=== PATIENT | male | born 1960 | race Caucasian/White ===

== ENCOUNTER 2021-01-11 15:00 | Outpatient (REF) | payer OTHER, SELFPAY ==
[2021-01-11 16:22] LABS: MANUAL DIFF FLAG NO
[2021-01-11 16:27] LABS: Basophils Percent Auto 0.4 % (0-2); Eosinophils Absolute Auto 0.2 X10*3/uL (0.0-0.4); Eosinophils Percent Auto 3.4 % (0-4); Hematocrit 36.7 % (42-52); Hemoglobin 12.2 g/dl (14.0-18.0); Imm Gran Abs Auto 0.01 X10*3/uL (0.00-0.03); Imm Gran Pct Auto 0.2 % (0.0-0.4); Lymphocytes Percent Auto 20.6 % (20-40); Mean Corpuscular HGB Conc 33.2 g/dl (31.0-36.0); Mean Corpuscular Hemoglobin 29.6 pg (27.0-33.0); Mean Corpuscular Volume 89.1 fL (80-98); Mean Platelet Volume 10.4 fL (9.4-12.4); Monocytes Absolute Auto 0.6 X10*3/uL (0.1-1.2); Monocytes Percent Auto 12.9 % (2-11); Neutrophils Absolute Auto 3.1 X10*3/uL (2.0-8.3); Neutrophils Percent Auto 62.5 % (45-73); Platelet Count 173 X10*3/uL (160-400); Red Blood Count 4.12 X10*6/uL (4.60-5.80); Red Cell Distribution Width 12.7 % (11.0-16.0)
[2021-01-11 18:03] LABS: Erythrocyte Sedimentation Rate 6 MM/HR (0-15)
[2021-01-12 12:07] LABS: Immunoglobulin E 200 kU/L (<OR=114)
== END 2021-01-11 15:01 | disposition home or self-care (01) ==
LOC: HO.LAB 15:00
PROVIDERS: PCP Internal Medicine; Visit Provider Hospitalist
DX: R91.8 Other nonspecific abnormal finding of lung field (principal); J45.40 Moderate persistent asthma, uncomplicated; G47.33 Obstructive sleep apnea (adult) (pediatric); Z99.89 Dependence on other enabling machines and devices
CPT/HCPCS: 36415; 82785; 85025; 85652

== ENCOUNTER 2021-01-14 13:03 | Outpatient (REF) | payer OTHER, SELFPAY ==
--- NOTE | 2021-01-14 14:46 | PFT_ITS ---
Forced vital capacity, FEV1, ZNS06-26, and MVV are all normal. Post bronchodilator therapy, there is no significant change. Total lung capacity normal. Residual volume slightly increased. Diffusion capacity slightly decreased. CONCLUSION: Normal pulmonary function test. Slight decrease in diffusion capacity may be due to technical reason. Clinical correlation recommended. MD PATRICIA Gu/EVELYN / [id number]
== END 2021-01-14 13:04 | disposition home or self-care (01) ==
LOC: HO.RESP 13:03
PROVIDERS: PCP Internal Medicine; Visit Provider Hospitalist
DX: R91.8 Other nonspecific abnormal finding of lung field (principal); R06.00 Dyspnea, unspecified
CPT/HCPCS: 94060; 94727; 94729

== ENCOUNTER → 2021-02-12 15:35 | Outpatient (BNVA) | payer OTHER, SELFPAY | PROVIDERS: PCP Internal Medicine; Visit Provider Hospitalist | DX: J44.9 Chronic obstructive pulmonary disease, unspecified (principal); J31.0 Chronic rhinitis; J45.909 Unspecified asthma, uncomplicated; R91.8 Other nonspecific abnormal finding of lung field ==

== ENCOUNTER → 2021-08-13 15:58 | Outpatient (BNVA) | payer OTHER, SELFPAY | PROVIDERS: PCP Internal Medicine; Visit Provider Hospitalist | DX: J44.9 Chronic obstructive pulmonary disease, unspecified (principal); J31.0 Chronic rhinitis; J45.909 Unspecified asthma, uncomplicated; R91.8 Other nonspecific abnormal finding of lung field ==

== ENCOUNTER 2022-02-11 | Outpatient (REF) | payer OTHER, SELFPAY ==
--- NOTE | ~2022-02-11 | CT_ITS ---
EXAMINATION: CT CHEST WITHOUT CONTRAST CLINICAL INFORMATION: Nodules COMPARISON: CT chest from 02/02/2021 TECHNIQUE: Multidetector volumetric CT imaging of the chest was done. Axial MIP volume rendering provided. Sagittal and coronal reformatted images were obtained. This CT examination was performed using dose optimization techniques as appropriate, variously including the following: *Automated exposure control *Adjustment of mA and/or kV according to patient size (this includes techniques or standardized protocols for targeted exams where dose is matched to indication/reason for exam; i.e. extremities or head) *Use of iterative reconstruction technique DLP: 196 mGy-cm FINDINGS: LUNGS/PLEURA: Biapical pleural parenchymal scarring. Mild emphysematous changes. Redemonstration of multiple bilateral pulmonary nodules. For example calcified granuloma in the right upper lobe (series 7, image 154). Stable 2 mm pleural-based nodule in the anterior aspect of the right upper lobe 2)Additional calcified granuloma just inferior to this (series 7, image 1). 2 mm nodule in the right upper lobe (series 7, image 223), stable. Stable 2 mm nodule along the right minor fissure (series 7, image 259). Stable nodular density with pleural tethering in the medial aspect of the anterior right middle lobe (series 7, image 281) measuring 4 mm. Stable 2 mm nodule in the right middle lobe (series 7, image 377). Stable 4 mm nodule in the lateral aspect of the right lower 5). Stable 2 mm subpleural nodule in the medial aspect of the left lower lobe (series 7, image 223). No new large suspicious pulmonary nodules or masses are noted. Central airways are patent. No pneumothorax. No large pleural effusion. MEDIASTINUM: Heart is not enlarged. No pericardial effusion. Coronary artery calcifications are noted. Aorta is nonaneurysmal. Main pulmonary artery is not enlarged. No enlarged lymph nodes per size criteria. Visualized portions of the thyroid are unremarkable AXILLA: No lymphadenopathy. UPPER ABDOMEN: Unremarkable. OSSEOUS STRUCTURES: Degenerative changes of the thoracolumbar spine. No large lytic or blastic lesions are noted. CT/CT chest wo con IMPRESSION: 1. Redemonstration of multiple bilateral pulmonary nodules the largest measuring up to 4 mm. 2. No new large suspicious pulmonary nodules or masses are noted.
== END 2022-02-11 00:01 | disposition home or self-care (01) ==
LOC: HO.CT
PROVIDERS: PCP Internal Medicine; Visit Provider Hospitalist
DX: R91.8 Other nonspecific abnormal finding of lung field (principal)
CPT/HCPCS: 71250

== ENCOUNTER 2022-05-13 07:59 | Outpatient (REF) | payer OTHER, SELFPAY ==
--- NOTE | ~2022-05-13 | US_ITS ---
EXAMINATION: US RETROPERITONEAL LIMITED (RENAL ONLY) CLINICAL INFORMATION: Calculus of kidney. COMPARISON: None TECHNIQUE: Real-time imaging of the kidneys. FINDINGS: RIGHT KIDNEY: 11.0 x 6.6 x 6.4 cm (SAG x AP x TRV). The kidney is normal in size, contour, and echogenicity. Renal cortical thickness is normal. No focal parenchymal lesions. There is a 1.5 cm hyperechoic elongated observation projecting over the renal hilum with associated twinkle artifact but no posterior shadowing. There is mild fullness of the renal pelvis. LEFT KIDNEY: 11.5 x 6.8 x 5.8 cm (SAG x AP x TRV). The kidney is normal in size, contour, and echogenicity. Renal cortical thickness is normal. No hydronephrosis. There is a 3.3 cm simple cyst in the mid to upper pole, for which no imaging follow-up is routinely recommended. There is a 0.6 cm calculus in the interpolar region and a 0.5 cm calculus in the lower pole. US/US renal BI IMPRESSION: 1. There is a 1.5 cm hyperechoic observation projecting over the right renal hilum with mild fullness of the right renal pelvis. This could represent a calculus with mild hydronephrosis. If clinically deemed appropriate, correlation with a CT abdomen/pelvis could be obtained. 2. There are 2 nonobstructive left-sided renal calculi, the largest measuring 0.6 cm. 3. Simple cyst in the left kidney for which no imaging follow-up is routinely recommended.
== END 2022-05-13 08:00 | disposition home or self-care (01) ==
LOC: HO.US 07:59
PROVIDERS: Visit Provider Urology
DX: N20.0 Calculus of kidney (principal)
CPT/HCPCS: 76775

== ENCOUNTER 2022-07-22 16:31 | Outpatient (REF) | payer OTHER, SELFPAY ==
--- NOTE | ~2022-07-22 | CT_ITS ---
EXAMINATION: CT ABDOMEN AND PELVIS WITHOUT CONTRAST CLINICAL INFORMATION: Calculus of kidney. COMPARISON: Ultrasound 05/13/2022 TECHNIQUE: Multidetector volumetric imaging was performed from the lung bases through the pubic symphysis. Sagittal and coronal reformatted images were obtained on the technologist workstation. This CT examination was performed using dose optimization techniques as appropriate, variously including the following: *Automated exposure control *Adjustment of mA and/or kV according to patient size (this includes techniques or standardized protocols for targeted exams where dose is matched to indication/reason for exam; i.e. extremities or head) *Use of iterative reconstruction technique FINDINGS: The lack of intravenous contrast limits evaluation of the solid visceral organs including the liver, spleen, pancreas, and kidneys. LUNG BASES: The visualized lung bases are unremarkable. LIVER, GALLBLADDER, AND BILIARY TREE: Limited non-contrast evaluation is normal. No gross focal hepatic lesion. Normal liver size and contour. No gross biliary ductal dilation. The gallbladder is unremarkable with no evidence of radiopaque gallstones, gallbladder wall thickening, or obvious pericholecystic inflammatory changes. PANCREAS: Limited non-contrast evaluation is normal. No david-pancreatic fluid. SPLEEN: Limited non-contrast evaluation is normal. ADRENAL GLANDS: Normal; no adrenal mass. KIDNEYS AND URETERS: 9 mm right lower pole calculus. 1 cm nonobstructing left mid renal calculus. 4 mm left lower pole nonobstructing calculus. 3.6 cm left upper pole simple renal cyst; no imaging follow-up recommended. No hydronephrosis bilaterally. GASTROINTESTINAL TRACT: Stomach and small bowel are nondilated. Appendix not seen but there are no right lower quadrant inflammatory changes. Scattered colonic diverticulosis. No evidence of colitis or diverticulitis. ABDOMINAL WALL: No hernia seen. LYMPH NODES: No pathologically enlarged lymph nodes in the abdomen or pelvis. VASCULAR: Normal caliber abdominal aorta. BLADDER: Unremarkable. PELVIC VISCERA: Prostatomegaly. OSSEOUS STRUCTURES: Degenerative changes of the hips and lumbar spine. CT/CT kidney stone IMPRESSION: Bilateral renal calculi up to 9 mm on the right, 10 mm on the left. No hydronephrosis.
== END 2022-07-22 16:32 | disposition home or self-care (01) ==
LOC: HO.CT 16:31
PROVIDERS: Visit Provider Urology
DX: N20.0 Calculus of kidney (principal)
CPT/HCPCS: 74176

== ENCOUNTER → 2022-08-03 13:57 | Outpatient (BNVA) | payer OTHER, SELFPAY | PROVIDERS: PCP Internal Medicine; Visit Provider Urology | DX: Z13.89 Encounter for screening for other disorder (principal) ==

== ENCOUNTER 2022-09-02 14:57 | Outpatient (REF) | payer OTHER, SELFPAY ==
--- NOTE | 2022-09-02 17:46 | PFT_ITS ---
INDICATION: Asthma. SPIROMETRY: FEV1 to FVC of 81% with an FEV1 of 4 L, which is 103% predicted and an FVC of 4.96 L, which is 97% predicted. No significant response to bronchodilator is noted. Maximum voluntary ventilation is 96% of predicted. LUNG VOLUMES: Total lung capacity 95% predicted. DIFFUSION CAPACITY: DLCO 72% predicted. COMPARISONS: PFTs from 2020. INTERPRETATION: No obstructive nor restrictive ventilatory defects identified. No significant response to bronchodilators noted. Normal maximum voluntary ventilation. Lung volumes are within normal limits. The patient does have a mild diffusion impairment. When compared to 2020, there is a trend decrease in the FVC, significant decrease in the FEV1, significant decrease in the total lung capacity, and a trend improvement in the diffusion capacity. Clinical correlation warranted. Kirk Hernandez MD MR/MODL / [id number]
== END 2022-09-02 14:58 | disposition home or self-care (01) ==
LOC: HO.RESP 14:57
PROVIDERS: PCP Internal Medicine; Visit Provider Hospitalist
DX: J45.40 Moderate persistent asthma, uncomplicated (principal)
CPT/HCPCS: 94060; 94727; 94729

== ENCOUNTER → 2022-09-16 15:32 | Outpatient (BNVA) | payer OTHER, SELFPAY | PROVIDERS: PCP Internal Medicine; Visit Provider Hospitalist | DX: Z13.89 Encounter for screening for other disorder (principal) ==

== ENCOUNTER 2022-09-30 11:53 | Outpatient (REF) | payer OTHER, SELFPAY ==
[2022-09-30 14:03] LABS: Cholesterol 125 mg/dL; HDL Cholesterol 65 mg/dL; LDL Cholesterol Calculated 53 mg/dl; Triglycerides 38 mg/dL
== END 2022-09-30 11:54 | disposition home or self-care (01) ==
LOC: HO.LAB 11:53
PROVIDERS: PCP Internal Medicine; Visit Provider Nurse Practitioner
DX: Z82.49 Family history of ischemic heart disease and other diseases of the circulatory system (principal)
CPT/HCPCS: 36415; 80061

== ENCOUNTER → 2022-12-16 14:57 | Outpatient (BNVA) | payer OTHER, SELFPAY | PROVIDERS: PCP Internal Medicine; Visit Provider Hospitalist ==

== ENCOUNTER 2023-04-26 13:51 | Outpatient (AMB) | payer OTHER, SELFPAY ==
--- NOTE | 2023-04-26 14:13 | MHC.OFFVIS ---
Intake Intake Visit Reasons: 6m follow up Intake Note: Patient is Present for 6mo Follow Up Urology Medication:none Antibiotic Allergies: allergy shots (?) Blood Thinners: none Pharmacy:[facility] Allergies beef, chicken, wheat, almonds, Allergy (Severe, Uncoded 04/26/23 14:16) Rash/Hives HPI HPI Comments History of Present Illness Details Rick REYES is a very pleasant male. He is a patient of Dr Milligan. They are seen in the office today for the following urologic conditions. - lower urinary tract symptoms Would like to push off ESWL 6 months - has shoulder issues currently Secondary issue is dermatitis on glans of penis - trial combination clobetasol cream Discussed findings with 2 stones Repeat imaging in 6 months KUB Nephrolithiasis/Urolithiasis:? They are here for?further evaluation of nephrolithiasis.? Urolithiasis was diagnosed?2006 had ureteroscopy.? The patient previously had kidney stones whose composition w?unknown.? Laboratory investigations include?no recent labs.? 24 Hour urine evaluation?none on file.? Prior treatment(s) include?observation, with dietary advice to increase fluids, decrease salt and watch protein intake.? Prior imaging includes?03/03 , a renal ultrasound, right 9mm, L 13mm.? - 07/07 CT 9 mm right lower pole calculus - 1 cm left mid pole, 4 mm left lower pole ? Therapeutic plan ?- surveillance [facility] Medical History Asthma Chronic allergic rhinitis EMANUEL on CPAP Pulmonary nodules Family History Other Seasonal allergies Social History Patient Tobacco Use Status: Never used Tobacco Review of Systems Const Denies chills and Denies fever(s) Card Reports no additional complaints and Denies syncope Resp Denies cough GI Denies abdominal pain and Denies heartburn Reports as per HPI and Denies change in libido Neuro Denies syncope Psych Denies change in libido Endo Denies change in libido Physical Exam Const General: cooperative, healthy appearing, comfortable and no acute distress Orientation/consciousness: patient oriented x3 HEENT Face and sinus: Yes normal facial exam Mouth: moist mucous membranes Neck Neck: Yes normal visual inspection, Yes full ROM and Yes trachea midline Chest Chest palpation & inspection: normal inspection of the chest Resp Effort & Inspection: normal respiratory effort, able to speak in complete sentences and no respiratory distress GI Inspection: Yes normal to inspection Back/Spine/Pelvis Cervical Spine: normal cervical lordosis Thoracic/Lumbar Spine: thoracic and lumbar spine normal to inspection Skin General skin exam: no rashes or lesions noted Neuro General: patient oriented x3, gait normal, tone normal and moves all extremities Extrem General: Yes normal to inspection and Yes capillary refill normal Assessment & Plan Assessment & Plan (1) Dermatitis: Code(s): L30.9 - Dermatitis, unspecified (2) Bilateral nephrolithiasis: Code(s): N20.0 - Calculus of kidney Plan Six month follow-up Orders: Orders XR KUB 6 Months N20.0 - Calculus of kidney Medications: New clotrimazole-betamethasone 1-0.05 % Apply thin coat 2 times per day 1 appl topical BID 4 weeks 45 grams 0RF L30.9 - Dermatitis, unspecified, N48.1 - Balanitis Patient Instructions: Imaging studies, laboratory and physical exam results were discussed and reviewed in detail. No major barriers to patient understanding were identified. An opportunity to ask questions regarding the treatment plan was provided. All questions were answered. The patient expressed understanding and agreement with the above treatment plan. The patient is aware they should contact our office by phone for worsening of their current condition or the appearance of new urologic symptoms. Compliance is encouraged with any medications and followup testing that is ordered. It is a privilege to participate in the urologic care of your patient. If you have any questions or concerns regarding treatment for the above conditions, or other urologic issues, please do not hesitate to contact me. The office telephone contact is [phone]. This note is constructed using voice recognition software. While every effort has been made to ensure accuracy pumper gauger errors may have been included. Yours sincerely, Dr Homero Wang MD, SHA[facility] - Urology Providers of Expert, Compassionate Care for the Genitourinary System Coding Level of Care Code Est Pt Level 4 (65057) Diagnoses Dermatitis L30.9 Bilateral nephrolithiasis N20.0
== END 2023-04-26 14:57 | disposition home or self-care (01) ==
PROVIDERS: PCP Internal Medicine; Visit Provider Urology
DX: L30.9 Dermatitis, unspecified (principal); N20.0 Calculus of kidney
CPT/HCPCS: 99214

== ENCOUNTER → 2023-04-26 13:51 | Outpatient (BNVA) | payer OTHER, SELFPAY | PROVIDERS: Visit Provider Urology ==

== ENCOUNTER 2023-05-04 15:24 | Outpatient (REF) | payer OTHER, SELFPAY ==
--- NOTE | ~2023-05-04 | CT_ITS ---
EXAMINATION: CT CHEST WITHOUT CONTRAST CLINICAL INFORMATION: Pulmonary nodule follow-up. COMPARISON: CTA chest 02/10/2021, 02/11/2022. TECHNIQUE: Multidetector volumetric CT imaging of the chest was done. Axial MIP volume rendering provided. Sagittal and coronal reformatted images were obtained. This CT examination was performed using dose optimization techniques as appropriate, variously including the following: *Automated exposure control *Adjustment of mA and/or kV according to patient size (this includes techniques or standardized protocols for targeted exams where dose is matched to indication/reason for exam; i.e. extremities or head) *Use of iterative reconstruction technique DLP: 188 mGy-cm FINDINGS: LUNGS: Mild centrilobular emphysema. Calcified and noncalcified nodules measuring up to 4 mm seen bilaterally. There is been no significant change when compared to index study of 02/10/2021. No morphologically suspicious nodules. MEDIASTINUM: No adenopathy. No pericardial effusion. CORONARY ARTERY CALCIFICATION: Mild coronary calcium. PLEURA: There is no pleural effusion. No pleural mass or thickening. AXILLA: No lymphadenopathy. UPPER ABDOMEN: Simple cyst in the left upper kidney. OSSEOUS STRUCTURES: Degenerative changes in the spine. CT/CT chest wo IV con IMPRESSION: Stable pulmonary nodules dating back to 02/10/2021. No follow-up imaging is recommended as per Fleischner Society guidelines. Fleischner guidelines were followed.
== END 2023-05-04 15:25 | disposition home or self-care (01) ==
LOC: HO.CT 15:24
PROVIDERS: PCP Internal Medicine; Visit Provider Hospitalist
DX: R91.8 Other nonspecific abnormal finding of lung field (principal)
CPT/HCPCS: 71250

== ENCOUNTER 2023-05-11 15:50 | Outpatient (AMB) | payer OTHER, SELFPAY ==
[2023-05-11 15:52] VITALS: BP 108/64; PULSE 64; O2SAT 98; BMI 24.5
--- NOTE | 2023-05-11 15:52 | MHC.OFFVIS ---
Intake Vital Signs 05/11/23 15:52 Height 6 ft Weight 180 lb 12.465 oz BMI 24.5 BP 108/64 Blood Pressure Location Rt brachial Position Sitting Pulse 64 Pulse Source Pulse Oximeter Pulse Oximetry (%) 98 Oxygen Delivery Method Room Air Intake Visit Reasons: COPD General Office Clerk Required: No Sea Foam Kiss Maker: Sea Foam Kiss Maker offered & declined Accompanied by: Self / Same As Patient Allergies beef, chicken, wheat, almonds, Allergy (Severe, Uncoded 05/11/23 15:58) Rash/Hives Medication List - Last Reconciled 05/11/23 by Pau Mendiola LPN atorvastatin 20 mg PO DAILY citalopram 30 mg PO DAILY clotrimazole-betamethasone 1-0.05 % 1 appl topical BID 4 weeks CPAP (CPAP Machine/Device) As directed omega 2-mjf-sxv-fish oil 60-90-500 mg (Fish Oil) 1 cap PO DAILY HPI HPI Comments History of Present Illness Details the patient is a 62-year-old gentleman with a known history of allergic rhinitis, allergic asthma and obstructive sleep apnea. The patient had a couple sleep studies demonstrating sleep apnea and he was very symptomatic her he was started on CPAP therapy with [facility] home infusions and respiratory DME company. Subsequently the company was bought out by [employer] and he was placed under [employer]. In the meantime the patient has been very faithful with his CPAP therapy. The therapy has been affecting beneficial for many years. He does use it for more than 4 hours a night. However, he has not been getting supplies regularly through his DME company. Therefore, I will submit a prescription to [employer] for CPAP supplies at this time. He did bring his CPAP to the office. We were able to download data. His AHI is 1.7 although 1.2 events an hour are due to central apneas. Only 0.5 events an hour are obstructive in nature. He has been complaining of swallowing a lot air. He feels the pressure is a little too high for him. Specially since he lost weight. I was able to changes pressures from 6-12 to 5-10. in addition to that he has a complaining about his significant allergies. He was evaluated by an manager psychiatry and he did try allergy shots but did not feel any significant improvement. He does complaint of significant nasal congestion and coughing and burning of eyes and runny nose. the patient is open to trying singular at this time. He does feel some congestion is concerned about sinusitis. we did review his last CT scan of the chest done at [facility] back in 2018 demonstrating multiple pulmonary nodules for patient continues to be symptomatic with cough shortness of from needs to concern of the pulmonary nodules this time. He also has had some weight loss. Therefore, will have him have a repeat CT scan of the chest this time. 09/16/2022 the patient is here for a pulmonary follow-up visit. He is complaining significant issues with his nasal passages. Complaining significant nasal congestion and irritation. Also feeling some sinus pressure. Hhrn-ev-tndylomc severity. He also uses CPAP which also can potentially worsen her. The patient has tried [id number]-[id number] nasal sprays and also prescription nasal sprays without any significant improvement. His nose appears to be significantly congested and erythematous. We did send him medications to the pharmacy for him to try including Sudafed and also he can draft roller picker some Afrin. I do believe that some doxycycline may be helpful for the possibility of sinusitis. In addition to this he is using the CPAP. The CPAP therapy has been affecting beneficial. Although his AHI is still about 3.4. It appears that most of the apneic episodes such antral sleep apnea is better not going to get better. Although I will try to increase his pressure slightly from 10-11 cm the maximum pressure to see if we can provide him some more relief. I did a repeat sure him that the central sleep apneas are not severe and that should not be treated at this time as they are normal. In addition to this is going to try some humidity with the CPAP to see if this can also get him some relief with sinusitis issue from an asthma standpoint the patient is doing well. He did have his pulmonary function studies demonstrating normal spirometry and lung volumes. His diffusing capacity continues to be on the low side although is better than before. He does run low and his hemoglobin. He will follow up with his primary care doctor regarding the anemia. His last hemoglobin on record here from 2020 was 12.1 just slightly now. 12/16/2022 the patient is here for a pulmonary follow-up visit. Still complaining of nasal congestion and sinus pressure. However, he has not followed up with any of the medications recommended. Explained to him the use of Sudafed and also Afrin will help open up the sinuses in order for better drainage. He did take the doxycycline although was not very helpful. I will prescribe from Augmentin to see if this more effective. He has seen ENT in the past. The patient also may benefit from getting a CT scan of sinus if he has no better. I did recommend he go back to ENT. In the meantime the patient should also perform nasal rinsing prior to putting on CPAP as this can also worsening his sinus pressure and obstruction. He does use CPAP every night. CPAP therapy has been affecting beneficial. He still struggles with the use of the CPAP however. He does use it for more than 4 hours a night. 05/11/2023 the patient is here for pulmonary follow-up visit. he has been having issues with significant daytime drowsiness. His [place] score is elevated 06/09. He has been using the CPAP every night. He has been averaging between 9-1/2-10 hours sleep. Still waking up tired. We did download his CPAP machine. His AHI is now 5. This is higher than before. As far as the breakdown up to 4 events an hour are due to central apneas. Therefore, explained to the patient that the machine is adequately treating the obstructive component but it may be that is making his central apneas worse. Therefore will go ahead and decrease the pressure by 1 cm. He is going to monitor closely symptoms. If however the AHI continues to be elevated and he continues to be symptomatic, then an in-lab titration study will be warranted. In the meantime he continues to have nasal congestion. We did talk about the Neti bottle. I did recommend he use it as long as use distilled water. He is concerned about the potential side effects therefore she will consider it. The patient also is using allergy medications. His respiratory status overall has been better. No wheezing today on examination. In addition to that we did review his CT scan of the chest. His pulmonary nodules have been stable for more than 2 years which is reassuring and likely benign. Therefore no additional serial CT scans are warranted. There other incidental findings such as a renal cyst. All these findings have been reported to be Unchanged. His biggest concern is his significant daytime drowsiness. Therefore to depending on his response to the changes performance CPAP we can always consider referral to a sleep center so we can further evaluate the possibility of a complex sleep apnea. REPLACED BY [facility] Medical History Asthma Chronic allergic rhinitis EMANUEL on CPAP Pulmonary nodules Family History Other Seasonal allergies Social History (Updated 05/11/23 @ 16:00 by Pau Mendiola LPN) Patient Tobacco Use Status: Never used Tobacco Smoked in Last 30 Days: No Review of Systems Const Denies night sweats ENT Denies change in voice, Denies mouth pain, Reports nasal congestion, Reports nasal discharge, Reports nasal obstruction, Reports post nasal drip, Reports sinus pain, Reports sinus pressure and Denies tongue swelling Card Denies chest pain Resp Reports cough GI Denies abdominal pain Musc Denies no additional complaints Neuro Denies Neuro-related abnormal movements Psych Denies no additional complaints Russel/Lymph Denies easy bleeding and Denies lymphadenopathy Aller/Immun Denies tongue swelling Physical Exam Vital Signs: Last Vital Signs Pulse 64 05/11/23 15:52 BP 108/64 05/11/23 15:52 Pulse Ox 98 05/11/23 15:52 Oxygen Delivery Method Room Air 05/11/23 15:52 BMI result Body Mass Index 24.5 Const General: alert HEENT General nose exam: Abnormal mucous membranes and turbinates present and Nasal discharge present Neck Neck: Yes normal visual inspection, Yes full ROM and Yes no lymphadenopathy Chest Chest palpation & inspection: normal inspection of the chest Resp Effort & Inspection: normal respiratory effort Auscultation: clear to auscultation bilaterally, no rhonchi and no wheezes Cardio Rate: regular rate Rhythm: regular rhythm Heart sounds: S1 normal heart sound present and S2 normal heart sound present GI Palpation (GI): Soft to palpation and nontender Auscultation: normal bowel sounds Skin General skin exam: rashes and/or lesions noted Assessment & Plan Assessment & Plan (1) Chronic allergic rhinitis: Code(s): J30.9 - Allergic rhinitis, unspecified (2) EMANUEL on CPAP: Code(s): G47.33 - Obstructive sleep apnea (adult) (pediatric); Z99.89 - Dependence on other enabling machines and devices (3) Asthma: Code(s): J45.909 - Unspecified asthma, uncomplicated Qualifiers: Asthma severity: moderate Asthma persistence: persistent Asthma complication type: uncomplicated Qualified Code(s): J45.40 - Moderate persistent asthma, uncomplicated (4) Pulmonary nodules: Code(s): R91.8 - Other nonspecific abnormal finding of lung field Plan Dymista BID Nasal rinsing with Neti bottle continue allergy shots APAP therapy, using nasal pillows. Adjust APAP 5-11 to 5-10. Will call if no better to set up in lab titration study no additional serial CT chest F/U in 3 months Coding Level of Care Code Est Pt Level 5 (89203) Diagnoses Chronic allergic rhinitis J30.9 EMANUEL on CPAP G47.33; Z99.89 Moderate persistent asthma without complication J45.40 Asthma severity: moderate Asthma persistence: persistent Asthma complication type: uncomplicated Pulmonary nodules R91.8 Time Spent (min) 45
== END 2023-05-12 14:34 | disposition home or self-care (01) ==
PROVIDERS: PCP Internal Medicine; Visit Provider Hospitalist
DX: J45.40 Moderate persistent asthma, uncomplicated (principal); G47.33 Obstructive sleep apnea (adult) (pediatric); Z99.89 Dependence on other enabling machines and devices; R91.8 Other nonspecific abnormal finding of lung field
CPT/HCPCS: 99215

== ENCOUNTER → 2023-05-11 15:50 | Outpatient (BNVA) | payer OTHER, SELFPAY | PROVIDERS: PCP Internal Medicine; Visit Provider Hospitalist ==

== ENCOUNTER → 2023-08-30 19:30 | Outpatient (REF) | payer OTHER, SELFPAY | LOC: HO.SL 19:30 | PROVIDERS: PCP Internal Medicine; Visit Provider Hospitalist | DX: Z13.89 Encounter for screening for other disorder (principal) ==

== ENCOUNTER 2023-09-07 14:49 | Outpatient (AMB) | payer OTHER, SELFPAY ==
[2023-09-07 15:00] VITALS: PULSE 92; O2SAT 98; BMI 24.7
--- NOTE | 2023-09-07 15:00 | MHC.OFFVIS ---
Intake Vital Signs 09/07/23 15:00 Height 6 ft Weight 182 lb BMI 24.7 Pulse 92 Pulse Source Pulse Oximeter Pulse Oximetry (%) 98 Oxygen Delivery Method Room Air Intake Visit Reasons: COPD Vegetable Loader Required: No Allergies beef, chicken, wheat, almonds, Allergy (Severe, Uncoded 09/07/23 15:01) Rash/Hives HPI HPI Comments History of Present Illness Details the patient is a 63-year-old gentleman with a known history of allergic rhinitis, allergic asthma and obstructive sleep apnea. The patient had a couple sleep studies demonstrating sleep apnea and he was very symptomatic her he was started on CPAP therapy with [employer] [facility] and respiratory DME company. Subsequently the company was bought out by [employer] and he was placed under [employer]. In the meantime the patient has been very faithful with his CPAP therapy. The therapy has been affecting beneficial for many years. He does use it for more than 4 hours a night. However, he has not been getting supplies regularly through his DME company. Therefore, I will submit a prescription to [employer] for CPAP supplies at this time. He did bring his CPAP to the office. We were able to download data. His AHI is 1.7 although 1.2 events an hour are due to central apneas. Only 0.5 events an hour are obstructive in nature. He has been complaining of swallowing a lot air. He feels the pressure is a little too high for him. Specially since he lost weight. I was able to changes pressures from 6-12 to 5-10. in addition to that he has a complaining about his significant allergies. He was evaluated by an swimming professor and he did try allergy shots but did not feel any significant improvement. He does complaint of significant nasal congestion and coughing and burning of eyes and runny nose. the patient is open to trying singular at this time. He does feel some congestion is concerned about sinusitis. we did review his last CT scan of the chest done at [facility] back in 2018 demonstrating multiple pulmonary nodules for patient continues to be symptomatic with cough shortness of from needs to concern of the pulmonary nodules this time. He also has had some weight loss. Therefore, will have him have a repeat CT scan of the chest this time. 09/16/2022 the patient is here for a pulmonary follow-up visit. He is complaining significant issues with his nasal passages. Complaining significant nasal congestion and irritation. Also feeling some sinus pressure. Buie-yc-xeqpwaei severity. He also uses CPAP which also can potentially worsen her. The patient has tried gwzn-cev-axdboef nasal sprays and also prescription nasal sprays without any significant improvement. His nose appears to be significantly congested and erythematous. We did send him medications to the pharmacy for him to try including Sudafed and also he can corn picker some Afrin. I do believe that some doxycycline may be helpful for the possibility of sinusitis. In addition to this he is using the CPAP. The CPAP therapy has been affecting beneficial. Although his AHI is still about 3.4. It appears that most of the apneic episodes such antral sleep apnea is better not going to get better. Although I will try to increase his pressure slightly from 10-11 cm the maximum pressure to see if we can provide him some more relief. I did a repeat sure him that the central sleep apneas are not severe and that should not be treated at this time as they are normal. In addition to this is going to try some humidity with the CPAP to see if this can also get him some relief with sinusitis issue from an asthma standpoint the patient is doing well. He did have his pulmonary function studies demonstrating normal spirometry and lung volumes. His diffusing capacity continues to be on the low side although is better than before. He does run low and his hemoglobin. He will follow up with his primary care doctor regarding the anemia. His last hemoglobin on record here from 2020 was 12.1 just slightly now. 12/16/2022 the patient is here for a pulmonary follow-up visit. Still complaining of nasal congestion and sinus pressure. However, he has not followed up with any of the medications recommended. Explained to him the use of Sudafed and also Afrin will help open up the sinuses in order for better drainage. He did take the doxycycline although was not very helpful. I will prescribe from Augmentin to see if this more effective. He has seen ENT in the past. The patient also may benefit from getting a CT scan of sinus if he has no better. I did recommend he go back to ENT. In the meantime the patient should also perform nasal rinsing prior to putting on CPAP as this can also worsening his sinus pressure and obstruction. He does use CPAP every night. CPAP therapy has been affecting beneficial. He still struggles with the use of the CPAP however. He does use it for more than 4 hours a night. 05/11/2023 the patient is here for pulmonary follow-up visit. he has been having issues with significant daytime drowsiness. His [facility] [place] score is elevated 1124. He has been using the CPAP every night. He has been averaging between 9-1/2-10 hours sleep. Still waking up tired. We did download his CPAP machine. His AHI is now 5. This is higher than before. As far as the breakdown up to 4 events an hour are due to central apneas. Therefore, explained to the patient that the machine is adequately treating the obstructive component but it may be that is making his central apneas worse. Therefore will go ahead and decrease the pressure by 1 cm. He is going to monitor closely symptoms. If however the AHI continues to be elevated and he continues to be symptomatic, then an in-lab titration study will be warranted. In the meantime he continues to have nasal congestion. We did talk about the Neti bottle. I did recommend he use it as long as use distilled water. He is concerned about the potential side effects therefore she will consider it. The patient also is using allergy medications. His respiratory status overall has been better. No wheezing today on examination. In addition to that we did review his CT scan of the chest. His pulmonary nodules have been stable for more than 2 years which is reassuring and likely benign. Therefore no additional serial CT scans are warranted. There other incidental findings such as a renal cyst. All these findings have been reported to be Unchanged. His biggest concern is his significant daytime drowsiness. Therefore to depending on his response to the changes performance CPAP we can always consider referral to a sleep center so we can further evaluate the possibility of a complex sleep apnea. 09/07/2023 the patient is here for a pulmonary follow-up visit. He is having issues lately with his CPAP. His AHI continues to be elevated above 5. We had made some adjustments to his APAP decreasing the maximum pressure to try to minimize the central apneas. Still getting abnormal numbers. Continues have daytime drowsiness and memory issues. In addition to that the patient started having some hearing loss. He is being monitored by ENT. He is wondering if the CPAP constant positive pressure could result in some injury to his hearing. Explained to him barotrauma from the pressure has been described, but, his pressures are typically on the lower to intermediate side. I personally have not seen people develop hearing loss form CPAP. Therefore, we had the patient undergo an in-lab sleep study. It appears that his AHI was on 2.4 consistent with normal study. His pulse ox was okay. His end-tidal CO2 was also reassuring. We did review his previous sleep study that he had back in 2016 at [facility] was a home sleep study with an AHI of 8.8. Seems like this sleep study most recently is better although is only 1 night study and he may indeed have some variability. Is wondering about other alternative interventions. We did talk about a elastic mandibular device. This is something that he can get from a dentist. I did give him information about that. This is sometimes going to provide him some relief. In view of the hearing loss, the normal sleep study, the elevations in his central apneas while on CPAP it is reasonable to hold off on the CPAP right now the patient will use the mandibular advancing device. If he does want to use CPAP then we have to decrease the pressures further but at this point I encourage him not to use it in view of the normal sleep study. In the future we can always consider repeating the study. She did have a good experience at the she could be sleep Center. [facility] Medical History (Updated 09/11/23 @ 09:13 by Kirk Hernandez MD) Hearing loss Complex sleep apnea syndrome Chronic allergic rhinitis EMANUEL on CPAP Asthma Pulmonary nodules Family History Other Seasonal allergies Social History (Updated 05/11/23 @ 16:00 by Pau Mendiola LPN) Patient Tobacco Use Status: Never used Tobacco Review of Systems Const Denies night sweats ENT Denies change in voice, Reports hearing loss, Denies mouth pain, Reports nasal congestion, Reports nasal discharge, Reports nasal obstruction, Reports post nasal drip, Reports sinus pain, Reports sinus pressure and Denies tongue swelling Card Denies chest pain Resp Reports cough GI Denies abdominal pain Musc Denies no additional complaints Neuro Denies Neuro-related abnormal movements Psych Denies no additional complaints Russel/Lymph Denies easy bleeding and Denies lymphadenopathy Aller/Immun Denies tongue swelling Physical Exam Vital Signs: Last Vital Signs Pulse 92 09/07/23 15:00 Pulse Ox 98 09/07/23 15:00 Oxygen Delivery Method Room Air 09/07/23 15:00 BMI result Body Mass Index 24.7 Const General: alert HEENT General nose exam: Abnormal mucous membranes and turbinates present and Nasal discharge present Neck Neck: Yes normal visual inspection, Yes full ROM and Yes no lymphadenopathy Chest Chest palpation & inspection: normal inspection of the chest Resp Effort & Inspection: normal respiratory effort Auscultation: clear to auscultation bilaterally, no rhonchi and no wheezes Cardio Rate: regular rate Rhythm: regular rhythm Heart sounds: S1 normal heart sound present and S2 normal heart sound present GI Palpation (GI): Soft to palpation and nontender Auscultation: normal bowel sounds Skin General skin exam: rashes and/or lesions noted Assessment & Plan Assessment & Plan (1) Chronic allergic rhinitis: Code(s): J30.9 - Allergic rhinitis, unspecified (2) EMANUEL on CPAP: Code(s): G47.33 - Obstructive sleep apnea (adult) (pediatric); Z99.89 - Dependence on other enabling machines and devices (3) Asthma: Code(s): J45.909 - Unspecified asthma, uncomplicated Qualifiers: Asthma severity: moderate Asthma persistence: persistent Asthma complication type: uncomplicated Qualified Code(s): J45.40 - Moderate persistent asthma, uncomplicated (4) Pulmonary nodules: Code(s): R91.8 - Other nonspecific abnormal finding of lung field (5) Hearing loss: Code(s): H91.90 - Unspecified hearing loss, unspecified ear Qualifiers: Hearing loss type: unspecified Laterality: unspecified laterality Qualified Code(s): H91.90 - Unspecified hearing loss, unspecified ear Plan Dymista BID Nasal rinsing with Neti bottle continue allergy shots holding APAP therapy, using nasal pillows. Based on normal PSG, worsening central apneas while on CPAP, and yeshearing loss. no additional serial CT chest F/U in 3 months Coding Level of Care Code Est Pt Level 5 (94627) Diagnoses Chronic allergic rhinitis J30.9 EMANUEL on CPAP G47.33; Z99.89 Moderate persistent asthma without complication J45.40 Asthma severity: moderate Asthma persistence: persistent Asthma complication type: uncomplicated Pulmonary nodules R91.8 Hearing loss, unspecified hearing loss type, unspecified laterality H91.90 Hearing loss type: unspecified Laterality: unspecified laterality Time Spent (min) 60
== END 2023-09-07 15:44 | disposition home or self-care (01) ==
PROVIDERS: PCP Internal Medicine; Visit Provider Hospitalist
DX: J45.40 Moderate persistent asthma, uncomplicated (principal); G47.33 Obstructive sleep apnea (adult) (pediatric); Z99.89 Dependence on other enabling machines and devices; R91.8 Other nonspecific abnormal finding of lung field; H91.90 Unspecified hearing loss, unspecified ear
CPT/HCPCS: 99215

== ENCOUNTER → 2023-09-07 14:49 | Outpatient (BNVA) | payer OTHER, SELFPAY | PROVIDERS: PCP Internal Medicine; Visit Provider Hospitalist ==

== ENCOUNTER 2023-12-07 14:49 | Outpatient (AMB) | payer OTHER, SELFPAY ==
[2023-12-07 15:12] VITALS: PULSE 63; O2SAT 98; BMI 23.7
--- NOTE | 2023-12-07 15:12 | MHC.OFFVIS ---
Vital Signs 12/07/23 15:12 Height 6 ft Weight 175 lb BMI 23.7 Pulse 63 Pulse Source Pulse Oximeter Pulse Oximetry (%) 98 Oxygen Delivery Method Room Air Intake Visit Reasons: COPD Bank Note Designer Required: No Allergies beef, chicken, wheat, almonds, Allergy (Severe, Uncoded 12/07/23 15:13) Rash/Hives HPI Comments Details: the patient is a 63-year-old gentleman with a known history of allergic rhinitis, allergic asthma and obstructive sleep apnea. The patient had a couple sleep studies demonstrating sleep apnea and he was very symptomatic her he was started on CPAP therapy with [facility] home infusions and respiratory DME company. Subsequently the company was bought out by [employer] and he was placed under [employer]. In the meantime the patient has been very faithful with his CPAP therapy. The therapy has been affecting beneficial for many years. He does use it for more than 4 hours a night. However, he has not been getting supplies regularly through his DME company. Therefore, I will submit a prescription to [employer] for CPAP supplies at this time. He did bring his CPAP to the office. We were able to download data. His AHI is 1.7 although 1.2 events an hour are due to central apneas. Only 0.5 events an hour are obstructive in nature. He has been complaining of swallowing a lot air. He feels the pressure is a little too high for him. Specially since he lost weight. I was able to changes pressures from 6-12 to 5-10. in addition to that he has a complaining about his significant allergies. He was evaluated by an audio visual facilities engineer and he did try allergy shots but did not feel any significant improvement. He does complaint of significant nasal congestion and coughing and burning of eyes and runny nose. the patient is open to trying singular at this time. He does feel some congestion is concerned about sinusitis. we did review his last CT scan of the chest done at [facility] back in 2018 demonstrating multiple pulmonary nodules for patient continues to be symptomatic with cough shortness of from needs to concern of the pulmonary nodules this time. He also has had some weight loss. Therefore, will have him have a repeat CT scan of the chest this time. 09/16/2022 the patient is here for a pulmonary follow-up visit. He is complaining significant issues with his nasal passages. Complaining significant nasal congestion and irritation. Also feeling some sinus pressure. Iqhf-yi-wyxlrfrs severity. He also uses CPAP which also can potentially worsen her. The patient has tried eniz-ity-qtvpiji nasal sprays and also prescription nasal sprays without any significant improvement. His nose appears to be significantly congested and erythematous. We did send him medications to the pharmacy for him to try including Sudafed and also he can knot picker cloth some Afrin. I do believe that some doxycycline may be helpful for the possibility of sinusitis. In addition to this he is using the CPAP. The CPAP therapy has been affecting beneficial. Although his AHI is still about 3.4. It appears that most of the apneic episodes such antral sleep apnea is better not going to get better. Although I will try to increase his pressure slightly from 10-11 cm the maximum pressure to see if we can provide him some more relief. I did a repeat sure him that the central sleep apneas are not severe and that should not be treated at this time as they are normal. In addition to this is going to try some humidity with the CPAP to see if this can also get him some relief with sinusitis issue from an asthma standpoint the patient is doing well. He did have his pulmonary function studies demonstrating normal spirometry and lung volumes. His diffusing capacity continues to be on the low side although is better than before. He does run low and his hemoglobin. He will follow up with his primary care doctor regarding the anemia. His last hemoglobin on record here from 2020 was 12.1 just slightly now. 12/16/2022 the patient is here for a pulmonary follow-up visit. Still complaining of nasal congestion and sinus pressure. However, he has not followed up with any of the medications recommended. Explained to him the use of Sudafed and also Afrin will help open up the sinuses in order for better drainage. He did take the doxycycline although was not very helpful. I will prescribe from Augmentin to see if this more effective. He has seen ENT in the past. The patient also may benefit from getting a CT scan of sinus if he has no better. I did recommend he go back to ENT. In the meantime the patient should also perform nasal rinsing prior to putting on CPAP as this can also worsening his sinus pressure and obstruction. He does use CPAP every night. CPAP therapy has been affecting beneficial. He still struggles with the use of the CPAP however. He does use it for more than 4 hours a night. 05/11/2023 the patient is here for pulmonary follow-up visit. he has been having issues with significant daytime drowsiness. His [place] score is elevated 06/09. He has been using the CPAP every night. He has been averaging between 9-1/2-10 hours sleep. Still waking up tired. We did download his CPAP machine. His AHI is now 5. This is higher than before. As far as the breakdown up to 4 events an hour are due to central apneas. Therefore, explained to the patient that the machine is adequately treating the obstructive component but it may be that is making his central apneas worse. Therefore will go ahead and decrease the pressure by 1 cm. He is going to monitor closely symptoms. If however the AHI continues to be elevated and he continues to be symptomatic, then an in-lab titration study will be warranted. In the meantime he continues to have nasal congestion. We did talk about the Neti bottle. I did recommend he use it as long as use distilled water. He is concerned about the potential side effects therefore she will consider it. The patient also is using allergy medications. His respiratory status overall has been better. No wheezing today on examination. In addition to that we did review his CT scan of the chest. His pulmonary nodules have been stable for more than 2 years which is reassuring and likely benign. Therefore no additional serial CT scans are warranted. There other incidental findings such as a renal cyst. All these findings have been reported to be Unchanged. His biggest concern is his significant daytime drowsiness. Therefore to depending on his response to the changes performance CPAP we can always consider referral to a sleep center so we can further evaluate the possibility of a complex sleep apnea. 09/07/2023 the patient is here for a pulmonary follow-up visit. He is having issues lately with his CPAP. His AHI continues to be elevated above 5. We had made some adjustments to his APAP decreasing the maximum pressure to try to minimize the central apneas. Still getting abnormal numbers. Continues have daytime drowsiness and memory issues. In addition to that the patient started having some hearing loss. He is being monitored by ENT. He is wondering if the CPAP constant positive pressure could result in some injury to his hearing. Explained to him barotrauma from the pressure has been described, but, his pressures are typically on the lower to intermediate side. I personally have not seen people develop hearing loss form CPAP. Therefore, we had the patient undergo an in-lab sleep study. It appears that his AHI was on 2.4 consistent with normal study. His pulse ox was okay. His end-tidal CO2 was also reassuring. We did review his previous sleep study that he had back in 2016 at [facility] was a home sleep study with an AHI of 8.8. Seems like this sleep study most recently is better although is only 1 night study and he may indeed have some variability. Is wondering about other alternative interventions. We did talk about a elastic mandibular device. This is something that he can get from a dentist. I did give him information about that. This is sometimes going to provide him some relief. In view of the hearing loss, the normal sleep study, the elevations in his central apneas while on CPAP it is reasonable to hold off on the CPAP right now the patient will use the mandibular advancing device. If he does want to use CPAP then we have to decrease the pressures further but at this point I encourage him not to use it in view of the normal sleep study. In the future we can always consider repeating the study. She did have a good experience at the she could be sleep Center. 12/08/2023 the patient is here for pulmonary follow-up visit. Overall he is doing well. Although he is having some family medical issues. This has caused significant stress. In meantime though his sleep has been okay. Does have daytime drowsiness while off the CPAP. EPWORTH score is elevated 10/24. He has been trying to get used to the elastic oral mandibular device. Therapy has been affecting beneficial. He has not having any significant snoring. Although he is getting some slight TMJ which she is uncomfortable with. He currently has 19. Band. He will continue to use that and see if it loosens up a little bit and hopefully he gets used to it in his TMJ settles. If it does not may have to go to they hire number. The patient needs to 1st get used to it. And then afterwards will go ahead and request a repeat in-lab sleep study to assess his response to therapy. We did look at his previous sleep study and the patient did not have any evidence of any central sleep apnea which is reassuring. From a respiratory status the patient has not been using his inhalers. He does have some wheezing on examination he is going to monitor closely. Also to note, he had been using the ipatropium nasal spray with very good response. But, he was told that his eye pressures are elevated, si he stopped it. Otherwise patient is without any other complaints. [facility] Medical History (Updated 12/11/23 @ 21:14 by Kirk Hernandez MD) EMANUEL (obstructive sleep apnea) Hearing loss Complex sleep apnea syndrome Chronic allergic rhinitis EMANUEL on CPAP Asthma Pulmonary nodules Family History Other Seasonal allergies Social History (Updated 05/11/23 @ 16:00 by Pau Mendiola LPN) Patient Tobacco Use Status: Never used Tobacco Review of Systems Const Reports daytime sleepiness and Denies night sweats Eyes Reports as per HPI ENT Denies change in voice, Reports hearing loss, Denies mouth pain, Reports nasal congestion, Reports nasal discharge, Reports nasal obstruction, Reports post nasal drip, Reports sinus pain, Reports sinus pressure and Denies tongue swelling Card Denies chest pain Resp Reports cough GI Denies abdominal pain Musc Denies no additional complaints Neuro Denies Neuro-related abnormal movements Psych Denies no additional complaints Russel/Lymph Denies easy bleeding and Denies lymphadenopathy Aller/Immun Denies tongue swelling Physical Exam Vital Signs: Last Vital Signs Pulse 63 12/07/23 15:12 Pulse Ox 98 12/07/23 15:12 Oxygen Delivery Method Room Air 12/07/23 15:12 BMI result Body Mass Index 23.7 Const General: alert HEENT Head: Yes normocephalic General nose exam: Abnormal mucous membranes and turbinates present and Nasal discharge present Neck Neck: Yes normal visual inspection, Yes full ROM and Yes no lymphadenopathy Chest Chest palpation & inspection: normal inspection of the chest Resp Effort & Inspection: normal respiratory effort Auscultation: clear to auscultation bilaterally, no rhonchi and no wheezes Cardio Rate: regular rate Rhythm: regular rhythm Heart sounds: S1 normal heart sound present and S2 normal heart sound present GI Palpation (GI): Soft to palpation and nontender Auscultation: normal bowel sounds Skin General skin exam: rashes and/or lesions noted Assessment & Plan Assessment & Plan (1) Chronic allergic rhinitis: Code(s): J30.9 - Allergic rhinitis, unspecified Category: Medical (2) Asthma: Code(s): J45.909 - Unspecified asthma, uncomplicated Category: Medical Qualifiers: Asthma severity: moderate Asthma persistence: persistent Asthma complication type: uncomplicated Qualified Code(s): J45.40 - Moderate persistent asthma, uncomplicated (3) Pulmonary nodules: Code(s): R91.8 - Other nonspecific abnormal finding of lung field Category: Medical (4) Hearing loss: Code(s): H91.90 - Unspecified hearing loss, unspecified ear Category: Medical Qualifiers: Hearing loss type: unspecified Laterality: unspecified laterality Qualified Code(s): H91.90 - Unspecified hearing loss, unspecified ear (5) EMANUEL (obstructive sleep apnea): Code(s): G47.33 - Obstructive sleep apnea (adult) (pediatric) Category: Medical Plan Dymista BID stop ipratropium nasal spray due to eye pressures ?glaucoma. Serial eye exams Nasal rinsing with Neti bottle continue allergy shots holding APAP therapy, \ worsening central apneas while on CPAP, and hearing loss. continue elastic mandibular device, gently adjusting to minimize TMJ Still has an elevated EPWORTH score, will plan to repeat in lab sleep study once adjusted mandibular device F/U in 4-6 months Medications: New azelastine-fluticasone 137-50 mcg/spray (Dymista) administer into each nostril 1 spray intranasal BID 23 grams 11RF 30 days Coding Level of Care Code Est Pt Level 4 (72244) Diagnoses Chronic allergic rhinitis J30.9 Moderate persistent asthma without complication J45.40 Asthma severity: moderate Asthma persistence: persistent Asthma complication type: uncomplicated Pulmonary nodules R91.8 Hearing loss, unspecified hearing loss type, unspecified laterality H91.90 Hearing loss type: unspecified Laterality: unspecified laterality EMANUEL (obstructive sleep apnea) G47.33 Time Spent (min) 20
== END 2023-12-07 15:47 | disposition home or self-care (01) ==
PROVIDERS: PCP Internal Medicine; Visit Provider Hospitalist
DX: J30.9 Allergic rhinitis, unspecified (principal); J45.40 Moderate persistent asthma, uncomplicated; R91.8 Other nonspecific abnormal finding of lung field; H91.90 Unspecified hearing loss, unspecified ear; G47.33 Obstructive sleep apnea (adult) (pediatric)
CPT/HCPCS: 99214

== ENCOUNTER → 2023-12-07 14:49 | Outpatient (BNVA) | payer OTHER, SELFPAY | PROVIDERS: PCP Internal Medicine; Visit Provider Hospitalist ==

== ENCOUNTER 2024-01-11 15:46 | Outpatient (AMB) | payer OTHER, SELFPAY ==
[2024-01-11 15:48] VITALS: PULSE 58; O2SAT 100; BMI 24.1
--- NOTE | 2024-01-11 15:48 | MHC.OFFVIS ---
Vital Signs 01/11/24 15:48 Height 6 ft Weight 178 lb BMI 24.1 Pulse 58 Pulse Source Pulse Oximeter Pulse Oximetry (%) 100 Oxygen Delivery Method Room Air Intake Visit Reasons: COPD Counterintelligence Specialist Required: No Allergies beef, chicken, wheat, almonds, Allergy (Severe, Uncoded 01/11/24 15:50) Rash/Hives HPI Comments Details: the patient is a 63-year-old gentleman with a known history of allergic rhinitis, allergic asthma and obstructive sleep apnea. The patient had a couple sleep studies demonstrating sleep apnea and he was very symptomatic her he was started on CPAP therapy with [facility] home infusions and respiratory DME company. Subsequently the company was bought out by [employer] and he was placed under [employer]. In the meantime the patient has been very faithful with his CPAP therapy. The therapy has been affecting beneficial for many years. He does use it for more than 4 hours a night. However, he has not been getting supplies regularly through his DME company. Therefore, I will submit a prescription to [employer] for CPAP supplies at this time. He did bring his CPAP to the office. We were able to download data. His AHI is 1.7 although 1.2 events an hour are due to central apneas. Only 0.5 events an hour are obstructive in nature. He has been complaining of swallowing a lot air. He feels the pressure is a little too high for him. Specially since he lost weight. I was able to changes pressures from 6-12 to 5-10. in addition to that he has a complaining about his significant allergies. He was evaluated by an floor inspector and he did try allergy shots but did not feel any significant improvement. He does complaint of significant nasal congestion and coughing and burning of eyes and runny nose. the patient is open to trying singular at this time. He does feel some congestion is concerned about sinusitis. we did review his last CT scan of the chest done at [facility] back in 2018 demonstrating multiple pulmonary nodules for patient continues to be symptomatic with cough shortness of from needs to concern of the pulmonary nodules this time. He also has had some weight loss. Therefore, will have him have a repeat CT scan of the chest this time. 09/16/2022 the patient is here for a pulmonary follow-up visit. He is complaining significant issues with his nasal passages. Complaining significant nasal congestion and irritation. Also feeling some sinus pressure. Upaz-tx-[id number] severity. He also uses CPAP which also can potentially worsen her. The patient has tried jjgt-[id number] nasal sprays and also prescription nasal sprays without any significant improvement. His nose appears to be significantly congested and erythematous. We did send him medications to the pharmacy for him to try including Sudafed and also he can picker packer some Afrin. I do believe that some doxycycline may be helpful for the possibility of sinusitis. In addition to this he is using the CPAP. The CPAP therapy has been affecting beneficial. Although his AHI is still about 3.4. It appears that most of the apneic episodes such antral sleep apnea is better not going to get better. Although I will try to increase his pressure slightly from 10-11 cm the maximum pressure to see if we can provide him some more relief. I did a repeat sure him that the central sleep apneas are not severe and that should not be treated at this time as they are normal. In addition to this is going to try some humidity with the CPAP to see if this can also get him some relief with sinusitis issue from an asthma standpoint the patient is doing well. He did have his pulmonary function studies demonstrating normal spirometry and lung volumes. His diffusing capacity continues to be on the low side although is better than before. He does run low and his hemoglobin. He will follow up with his primary care doctor regarding the anemia. His last hemoglobin on record here from 2020 was 12.1 just slightly now. 12/16/2022 the patient is here for a pulmonary follow-up visit. Still complaining of nasal congestion and sinus pressure. However, he has not followed up with any of the medications recommended. Explained to him the use of Sudafed and also Afrin will help open up the sinuses in order for better drainage. He did take the doxycycline although was not very helpful. I will prescribe from Augmentin to see if this more effective. He has seen ENT in the past. The patient also may benefit from getting a CT scan of sinus if he has no better. I did recommend he go back to ENT. In the meantime the patient should also perform nasal rinsing prior to putting on CPAP as this can also worsening his sinus pressure and obstruction. He does use CPAP every night. CPAP therapy has been affecting beneficial. He still struggles with the use of the CPAP however. He does use it for more than 4 hours a night. 05/11/2023 the patient is here for pulmonary follow-up visit. he has been having issues with significant daytime drowsiness. His [place] score is elevated 06/09. He has been using the CPAP every night. He has been averaging between 9-1/2-10 hours sleep. Still waking up tired. We did download his CPAP machine. His AHI is now 5. This is higher than before. As far as the breakdown up to 4 events an hour are due to central apneas. Therefore, explained to the patient that the machine is adequately treating the obstructive component but it may be that is making his central apneas worse. Therefore will go ahead and decrease the pressure by 1 cm. He is going to monitor closely symptoms. If however the AHI continues to be elevated and he continues to be symptomatic, then an in-lab titration study will be warranted. In the meantime he continues to have nasal congestion. We did talk about the Neti bottle. I did recommend he use it as long as use distilled water. He is concerned about the potential side effects therefore she will consider it. The patient also is using allergy medications. His respiratory status overall has been better. No wheezing today on examination. In addition to that we did review his CT scan of the chest. His pulmonary nodules have been stable for more than 2 years which is reassuring and likely benign. Therefore no additional serial CT scans are warranted. There other incidental findings such as a renal cyst. All these findings have been reported to be Unchanged. His biggest concern is his significant daytime drowsiness. Therefore to depending on his response to the changes performance CPAP we can always consider referral to a sleep center so we can further evaluate the possibility of a complex sleep apnea. 09/07/2023 the patient is here for a pulmonary follow-up visit. He is having issues lately with his CPAP. His AHI continues to be elevated above 5. We had made some adjustments to his APAP decreasing the maximum pressure to try to minimize the central apneas. Still getting abnormal numbers. Continues have daytime drowsiness and memory issues. In addition to that the patient started having some hearing loss. He is being monitored by ENT. He is wondering if the CPAP constant positive pressure could result in some injury to his hearing. Explained to him barotrauma from the pressure has been described, but, his pressures are typically on the lower to intermediate side. I personally have not seen people develop hearing loss form CPAP. Therefore, we had the patient undergo an in-lab sleep study. It appears that his AHI was on 2.4 consistent with normal study. His pulse ox was okay. His end-tidal CO2 was also reassuring. We did review his previous sleep study that he had back in 2016 at [facility] was a home sleep study with an AHI of 8.8. Seems like this sleep study most recently is better although is only 1 night study and he may indeed have some variability. Is wondering about other alternative interventions. We did talk about a elastic mandibular device. This is something that he can get from a dentist. I did give him information about that. This is sometimes going to provide him some relief. In view of the hearing loss, the normal sleep study, the elevations in his central apneas while on CPAP it is reasonable to hold off on the CPAP right now the patient will use the mandibular advancing device. If he does want to use CPAP then we have to decrease the pressures further but at this point I encourage him not to use it in view of the normal sleep study. In the future we can always consider repeating the study. She did have a good experience at the she could be sleep Center. 12/08/2023 the patient is here for pulmonary follow-up visit. Overall he is doing well. Although he is having some family medical issues. This has caused significant stress. In meantime though his sleep has been okay. Does have daytime drowsiness while off the CPAP. EPWORTH score is elevated 10/24. He has been trying to get used to the elastic oral mandibular device. Therapy has been affecting beneficial. He has not having any significant snoring. Although he is getting some slight TMJ which she is uncomfortable with. He currently has 19. Band. He will continue to use that and see if it loosens up a little bit and hopefully he gets used to it in his TMJ settles. If it does not may have to go to they hire number. The patient needs to 1st get used to it. And then afterwards will go ahead and request a repeat in-lab sleep study to assess his response to therapy. We did look at his previous sleep study and the patient did not have any evidence of any central sleep apnea which is reassuring. From a respiratory status the patient has not been using his inhalers. He does have some wheezing on examination he is going to monitor closely. Also to note, he had been using the ipatropium nasal spray with very good response. But, he was told that his eye pressures are elevated, si he stopped it. Otherwise patient is without any other complaints. 01/11/2024 the patient is here for pulmonary follow-up visit. He has been noticing increasing shortness of breath and chest tightness. The patient did have some wheezing during previous evaluation. Currently he does have a rescue inhaler but is an old 1. he is concerned about using it. I did encourage him to use it As needed for the chest tightness and shortness breath symptoms and also is noticing some wheezing. When he does use the albuterol he can use 1 or 2 puffs. Ideally for him he should stick with less medicines since he tends to be more sensitive to the medicine. In addition to that he is complaining of ear discomfort his right ear has been hurting. Denies any significant sinus congestion at this time. Although is hurting less at this time seems. The patient has been trying to use the oral mandibular device although he started developing significant TMJ when he started going to the more extreme bands. Therefore now he has having a lot of pain. He is stopped using it. I did encourage him to massage his TMJ typically using nonsteroidal medicines such as Voltaren to the affected area daily. He should go back to using his mouth guard for his grinding. However once patient feels better he should re-attempt to use the elastic oral mandibular device with a 21 mm band. Once the patient is able to tolerated we can consider repeating the sleep study. He does not tolerate it because his TMJ then he should at least go back to his mouth guard to minimize on the grinding issue. He has wondering about a diagnosis of COPD that was brought up in 1 of his [place]. At least I do not have COPD in any of my reports. His pulmonary function studies do not represent any evidence of any COPD. Does a question of emphysema on [address] but it is minimal and is not consistent with COPD. COUNTS INCLUDE 234 BEDS AT THE [facility] Medical History (Updated 01/11/24 @ 23:19 by Kirk Hernandez MD) EMANUEL (obstructive sleep apnea) Hearing loss Complex sleep apnea syndrome Chronic allergic rhinitis EMANUEL on CPAP Asthma Pulmonary nodules Family History Other Seasonal allergies Social History (Updated 05/11/23 @ 16:00 by Pau Mendiola LPN) Patient Tobacco Use Status: Never used Tobacco Review of Systems Const Reports daytime sleepiness and Denies night sweats Eyes Reports as per HPI ENT Denies change in voice, Reports hearing loss, Denies mouth pain, Reports nasal congestion, Reports nasal discharge, Reports nasal obstruction, Reports post nasal drip, Reports sinus pain, Reports sinus pressure, Denies tongue swelling and Reports other (TMJ) Card Denies chest pain Resp Reports cough GI Denies abdominal pain Musc Denies no additional complaints Neuro Denies Neuro-related abnormal movements Psych Denies no additional complaints Russel/Lymph Denies easy bleeding and Denies lymphadenopathy Aller/Immun Denies tongue swelling Physical Exam Vital Signs: Last Vital Signs Pulse 58 01/11/24 15:48 Pulse Ox 100 01/11/24 15:48 Oxygen Delivery Method Room Air 01/11/24 15:48 BMI result Body Mass Index 24.1 Const General: alert HEENT Head: Yes normocephalic General nose exam: Abnormal mucous membranes and turbinates present and Nasal discharge present Neck Neck: Yes normal visual inspection, Yes full ROM and Yes no lymphadenopathy Chest Chest palpation & inspection: normal inspection of the chest Resp Effort & Inspection: normal respiratory effort Auscultation: clear to auscultation bilaterally, no rhonchi and no wheezes Cardio Rate: regular rate Rhythm: regular rhythm Heart sounds: S1 normal heart sound present and S2 normal heart sound present GI Palpation (GI): Soft to palpation and nontender Auscultation: normal bowel sounds Skin General skin exam: rashes and/or lesions noted Assessment & Plan Assessment & Plan (1) Chronic allergic rhinitis: Code(s): J30.9 - Allergic rhinitis, unspecified Category: Medical (2) Asthma: Code(s): J45.909 - Unspecified asthma, uncomplicated Category: Medical Qualifiers: Asthma complication type: uncomplicated Asthma persistence: persistent Asthma severity: moderate Qualified Code(s): J45.40 - Moderate persistent asthma, uncomplicated (3) Pulmonary nodules: Code(s): R91.8 - Other nonspecific abnormal finding of lung field Category: Medical (4) Hearing loss: Code(s): H91.90 - Unspecified hearing loss, unspecified ear Category: Medical Qualifiers: Hearing loss type: unspecified Laterality: unspecified laterality Qualified Code(s): H91.90 - Unspecified hearing loss, unspecified ear (5) EMANUEL (obstructive sleep apnea): Code(s): G47.33 - Obstructive sleep apnea (adult) (pediatric) Category: Medical (6) Otitis externa: Code(s): H60.90 - Unspecified otitis externa, unspecified ear Category: Medical Qualifiers: Chronicity: acute Laterality: right Otitis externa type: other infective Qualified Code(s): H60.391 - Other infective otitis externa, right ear Plan Dymista BID stopped ipratropium nasal spray due to eye pressures ?glaucoma. Serial eye exams Nasal rinsing with Neti bottle continue allergy shots holding APAP therapy, \ worsening central apneas while on CPAP, and hearing loss. start mouth gaurd, then retrial elastic mandibular device, gently adjusting to minimize TMJ Still has an elevated EPWORTH score, will plan to repeat in lab sleep study once adjusted mandibular device ear drops F/U in 4-6 months Medications: New ciprofloxacin-dexamethasone 0.3-0.1 % 4 drps otic (ear) right BID 7.5 mL 0RF 7 days albuterol sulfate 90 mcg/actuation 2 inhalations inhalation Q6H PRN 18 grams 12RF shortness of breath or wheezing 30 days J44.9 - Chronic obstructive pulmonary disease, unspecified Coding Level of Care Code Est Pt Level 5 (55992) Diagnoses Chronic allergic rhinitis J30.9 Moderate persistent asthma without complication J45.40 Asthma complication type: uncomplicated Asthma persistence: persistent Asthma severity: moderate Pulmonary nodules R91.8 Hearing loss, unspecified hearing loss type, unspecified laterality H91.90 Hearing loss type: unspecified Laterality: unspecified laterality EMANUEL (obstructive sleep apnea) G47.33 Other infective acute otitis externa of right ear H60.391 Chronicity: acute Laterality: right Otitis externa type: other infective Time Spent (min) 30
== END 2024-01-11 16:27 | disposition home or self-care (01) ==
PROVIDERS: PCP Internal Medicine; Visit Provider Hospitalist
DX: J45.40 Moderate persistent asthma, uncomplicated (principal); R91.8 Other nonspecific abnormal finding of lung field; H91.90 Unspecified hearing loss, unspecified ear; G47.33 Obstructive sleep apnea (adult) (pediatric); H60.391 Other infective otitis externa, right ear
CPT/HCPCS: 99214

== ENCOUNTER → 2024-01-11 15:46 | Outpatient (BNVA) | payer OTHER, SELFPAY | PROVIDERS: PCP Internal Medicine; Visit Provider Hospitalist ==

== ENCOUNTER 2024-04-12 13:16 | Outpatient (AMB) | payer OTHER, SELFPAY ==
--- NOTE | 2024-04-12 13:31 | MHC.OFFVIS ---
Intake Visit Reasons: 6m Follow Up(no kub) Intake Note: Patient is Present for Follow Up Urology Medication: None Antibiotic Allergies:None Blood Thinners: None Patient states he has been having some back pain, he is unsure if he has stones or its from his regular back pain that he has. Pt was ordered KUB xray last visit but was not done. Patient states he has not had any recent imaging. Business Account Specialist Required: No Accompanied by: self Allergies beef, chicken, wheat, almonds, Allergy (Severe, Uncoded 04/12/24 13:33) Rash/Hives HPI Comments Details: Rick REYES is a very pleasant male. He is a patient of Dr Milligan. They are seen in the office today for the following urologic conditions. - lower urinary tract symptoms - nephrolithiasis - penile glans dermatitis Yearly follow-up Would like to go ahead with right ESWL Discussed findings with 2 stones Repeat imaging in 6 months KUB Stone burden right greater than left Nephrolithiasis/Urolithiasis:? They are here for?further evaluation of nephrolithiasis.? Urolithiasis was diagnosed?2006 had ureteroscopy.? The patient previously had kidney stones whose composition w?unknown.? Laboratory investigations include?no recent labs.? 24 Hour urine evaluation?none on file.? Prior treatment(s) include?observation, with dietary advice to increase fluids, decrease salt and watch protein intake.? Prior imaging includes?03/03 , a renal ultrasound, right 9mm, L 13mm.? - 07/07 CT 9 mm right lower pole calculus - 1 cm right mid pole, 4 mm left lower pole ? Therapeutic plan ?- surveillance [facility] Medical History (Updated 01/11/24 @ 23:19 by Kirk Hernandez MD) EMANUEL (obstructive sleep apnea) Hearing loss Complex sleep apnea syndrome Chronic allergic rhinitis EMANUEL on CPAP Asthma Pulmonary nodules Family History Other Seasonal allergies Social History (Updated 05/11/23 @ 16:00 by Pau Mendiola LPN) Patient Tobacco Use Status: Never used Tobacco Review of Systems Const Denies chills and Denies fever(s) Card Reports no additional complaints and Denies syncope Resp Denies cough GI Denies abdominal pain and Denies heartburn Reports as per HPI and Denies change in libido Neuro Denies syncope Psych Denies change in libido Endo Denies change in libido Physical Exam Const General: cooperative, healthy appearing, comfortable and no acute distress Orientation/consciousness: patient oriented x3 HEENT Face and sinus: Yes normal facial exam Mouth: moist mucous membranes Neck Neck: Yes normal visual inspection, Yes full ROM and Yes trachea midline Chest Chest palpation & inspection: normal inspection of the chest Resp Effort & Inspection: normal respiratory effort, able to speak in complete sentences and no respiratory distress GI Inspection: Yes normal to inspection Back/Spine/Pelvis Cervical Spine: normal cervical lordosis Thoracic/Lumbar Spine: thoracic and lumbar spine normal to inspection Skin General skin exam: no rashes or lesions noted Neuro General: patient oriented x3, gait normal, tone normal and moves all extremities Extrem General: Yes normal to inspection and Yes capillary refill normal Assessment & Plan Assessment & Plan (1) Bilateral nephrolithiasis: Code(s): N20.0 - Calculus of kidney Category: Medical Plan Extracorporeal Shock Wave Lithotripsy We discussed the nature of the decision and reasonable alternatives for performing the above surgery. Interventions include chemical dissolution, ESWL, ureteroscopy with laser lithotripsy and stent placement, PCNL. Options such as medical therapy were discussed. The relative uncertainties and benefits related to each alternate procedure were adequately discussed. General surgical risks including, but not limited to, pain, bleeding, infection, myocardial infarction, pulmonary embolus, deep vein thrombosis and cerebrovascular accident which may result in further hospitalization were discussed. Full disclosure of the procedure as well as all major risks, benefits and complications were discussed including but not limited to risks of bleeding, injury to the kidney with hematoma or david-hematoma, failure to fragments stone, potential for ureteric obstruction from stone passage and need for secondary procedures. There is a small long-term risk of hypertension and a question lenard of diabetes. Success rate of fragmentation and passage is approximately 70- 75%. This is compared to the risks and benefits for ureteroscopy which has a higher success rate but is a more invasive procedure. The success rate of the procedure was discussed. Success of the procedure in the short-term does not necessarily guarantee that long-term success will be maintained. Suitable follow up will need to be maintained. The patient showed understanding of the discussion as well as the typical recovery time, and the outpatient nature of this procedure. Opportunity was given for questions. Repeat-back protocol used to confirm understanding. They wish to proceed with right ESWL Patient Instructions: Imaging studies, laboratory and physical exam results were discussed and reviewed in detail. No major barriers to patient understanding were identified. An opportunity to ask questions regarding the treatment plan was provided. All questions were answered. The patient expressed understanding and agreement with the above treatment plan. The patient is aware they should contact our office by phone for worsening of their current condition or the appearance of new urologic symptoms. Compliance is encouraged with any medications and followup testing that is ordered. It is a privilege to participate in the urologic care of your patient. If you have any questions or concerns regarding treatment for the above conditions, or other urologic issues, please do not hesitate to contact me. The office telephone contact is [phone]. This note is constructed using voice recognition software. While every effort has been made to ensure accuracy neighborhood conservation officer errors may have been included. Yours sincerely, Dr Homero Wang MD, [facility] - Urology Providers of Expert, Compassionate Care for the Genitourinary System Coding Level of Care Code Est Pt Level 4 (21283) Diagnoses Bilateral nephrolithiasis N20.0
== END 2024-04-12 14:22 | disposition home or self-care (01) ==
PROVIDERS: PCP Internal Medicine; Visit Provider Urology
DX: N20.0 Calculus of kidney (principal)
CPT/HCPCS: 99214

== ENCOUNTER → 2024-04-12 13:16 | Outpatient (BNVA) | payer OTHER, SELFPAY | PROVIDERS: PCP Internal Medicine; Visit Provider Urology ==

== ENCOUNTER 2024-05-31 14:03 | Outpatient (AMB) | payer OTHER, SELFPAY ==
[2024-05-31 14:04] VITALS: BP 122/68; PULSE 70; O2SAT 100; BMI 24.7
--- NOTE | 2024-05-31 14:04 | A.OFFVIS_ITS ---
Vital Signs 05/31/24 14:04 Height 6 ft Weight 181 lb 14.102 oz BMI 24.7 BP 122/68 Blood Pressure Location Rt brachial Position Sitting Pulse 70 Pulse Source Pulse Oximeter Pulse Oximetry (%) 100 Oxygen Delivery Method Room Air Intake Visit Reasons: COPD Manager Employee Benefits Required: No Water Pollution Control Inspector: Water Pollution Control Inspector offered & declined Accompanied by: Self / Same As Patient Allergies beef, chicken, wheat, almonds, Allergy (Severe, Uncoded 05/31/24 14:12) Rash/Hives Medication List - Last Reconciled 05/31/24 by Pau Mendiola LPN albuterol sulfate 90 mcg/actuation 2 inhalations inhalation Q6H PRN 30 days atorvastatin 20 mg PO DAILY azelastine-fluticasone 137-50 mcg/spray (Dymista) 1 spray intranasal BID 30 days ciprofloxacin-dexamethasone 0.3-0.1 % 4 drps otic (ear) right BID 7 days citalopram 30 mg PO DAILY clotrimazole-betamethasone 1-0.05 % 1 appl topical BID 4 weeks CPAP (CPAP Machine/Device) As directed ipratropium bromide intranasal omega 6-hul-ube-fish oil 60-90-500 mg (Fish Oil) 1 cap PO DAILY HPI Comments Details: the patient is a 64-year-old gentleman with a known history of allergic rhinitis, allergic asthma and obstructive sleep apnea. The patient had a couple sleep studies demonstrating sleep apnea and he was very symptomatic her he was started on CPAP therapy with [facility] and respiratory DME company. Subsequently the company was bought out by [employer] and he was placed under [employer]. In the meantime the patient has been very faithful with his CPAP therapy. The therapy has been affecting beneficial for many years. He does use it for more than 4 hours a night. However, he has not been getting supplies regularly through his DME company. Therefore, I will submit a prescription to [facility] for CPAP supplies at this time. He did bring his CPAP to the office. We were able to download data. His AHI is 1.7 although 1.2 events an hour are due to central apneas. Only 0.5 events an hour are obstructive in nature. He has been complaining of swallowing a lot air. He feels the pressure is a little too high for him. Specially since he lost weight. I was able to changes pressures from 6-12 to 5-10. in addition to that he has a complaining about his significant allergies. He was evaluated by an top printing press operator and he did try allergy shots but did not feel any significant improvement. He does complaint of significant nasal congestion and coughing and burning of eyes and runny nose. the patient is open to trying singular at this time. He does feel some congestion is concerned about sinusitis. we did review his last CT scan of the chest done at [facility] back in 2018 demonstrating multiple pulmonary nodules for patient continues to be symptomatic with cough shortness of from needs to concern of the pulmonary nodules this time. He also has had some weight loss. Therefore, will have him have a repeat CT scan of the chest this time. 09/16/2022 the patient is here for a pulmonary follow-up visit. He is complaining significant issues with his nasal passages. Complaining significant nasal congestion and irritation. Also feeling some sinus pressure. Lzoh-tz-fuwqyqpx severity. He also uses CPAP which also can potentially worsen her. The patient has tried dgyi-ifn-ekpqtar nasal sprays and also prescription nasal sprays without any significant improvement. His nose appears to be significantly congested and erythematous. We did send him medications to the pharmacy for him to try including Sudafed and also he can lease picker some Afrin. I do believe that some doxycycline may be helpful for the possibility of sinusitis. In addition to this he is using the CPAP. The CPAP therapy has been affecting beneficial. Although his AHI is still about 3.4. It appears that most of the apneic episodes such antral sleep apnea is better not going to get better. Although I will try to increase his pressure slightly from 10-11 cm the maximum pressure to see if we can provide him some more relief. I did a repeat sure him that the central sleep apneas are not severe and that should not be treated at this time as they are normal. In addition to this is going to try some humidity with the CPAP to see if this can also get him some relief with sinusitis issue from an asthma standpoint the patient is doing well. He did have his pulmonary function studies demonstrating normal spirometry and lung volumes. His diffusing capacity continues to be on the low side although is better than before. He does run low and his hemoglobin. He will follow up with his primary care doctor regarding the anemia. His last hemoglobin on record here from 2020 was 12.1 just slightly now. 12/16/2022 the patient is here for a pulmonary follow-up visit. Still complaining of nasal congestion and sinus pressure. However, he has not followed up with any of the medications recommended. Explained to him the use of Sudafed and also Afrin will help open up the sinuses in order for better drainage. He did take the doxycycline although was not very helpful. I will prescribe from Augmentin to see if this more effective. He has seen ENT in the past. The patient also may benefit from getting a CT scan of sinus if he has no better. I did recommend he go back to ENT. In the meantime the patient should also perform nasal rinsing prior to putting on CPAP as this can also worsening his sinus pressure and obstruction. He does use CPAP every night. CPAP therapy has been affecting beneficial. He still struggles with the use of the CPAP however. He does use it for more than 4 hours a night. 05/11/2023 the patient is here for pulmonary follow-up visit. he has been having issues with significant daytime drowsiness. His [place] score is elevated 06/09. He has been using the CPAP every night. He has been averaging between 9-1/2-10 hours sleep. Still waking up tired. We did download his CPAP machine. His AHI is now 5. This is higher than before. As far as the breakdown up to 4 events an hour are due to central apneas. Therefore, explained to the patient that the machine is adequately treating the obstructive component but it may be that is making his central apneas worse. Therefore will go ahead and decrease the pressure by 1 cm. He is going to monitor closely symptoms. If however the AHI continues to be elevated and he continues to be symptomatic, then an in-lab titration study will be warranted. In the meantime he continues to have nasal congestion. We did talk about the Neti bottle. I did recommend he use it as long as use distilled water. He is concerned about the potential side effects therefore she will consider it. The patient also is using allergy medications. His respiratory status overall has been better. No wheezing today on examination. In addition to that we did review his CT scan of the chest. His pulmonary nodules have been stable for more than 2 years which is reassuring and likely benign. Therefore no additional serial CT scans are warranted. There other incidental findings such as a renal cyst. All these findings have been reported to be Unchanged. His biggest concern is his significant daytime drowsiness. Therefore to depending on his response to the changes performance CPAP we can always consider referral to a sleep center so we can further evaluate the possibility of a complex sleep apnea. 09/07/2023 the patient is here for a pulmonary follow-up visit. He is having issues lately with his CPAP. His AHI continues to be elevated above 5. We had made some adjustments to his APAP decreasing the maximum pressure to try to minimize the central apneas. Still getting abnormal numbers. Continues have daytime drowsiness and memory issues. In addition to that the patient started having some hearing loss. He is being monitored by ENT. He is wondering if the CPAP constant positive pressure could result in some injury to his hearing. Explained to him barotrauma from the pressure has been described, but, his pressures are typically on the lower to intermediate side. I personally have not seen people develop hearing loss form CPAP. Therefore, we had the patient undergo an in-lab sleep study. It appears that his AHI was on 2.4 consistent with normal study. His pulse ox was okay. His end-tidal CO2 was also reassuring. We did review his previous sleep study that he had back in 2016 at [facility] was a home sleep study with an AHI of 8.8. Seems like this sleep study most recently is better although is only 1 night study and he may indeed have some variability. Is wondering about other alternative i nterventions. We did talk about a elastic mandibular device. This is something that he can get from a dentist. I did give him information about that. This is sometimes going to provide him some relief. In view of the hearing loss, the normal sleep study, the elevations in his central apneas while on CPAP it is reasonable to hold off on the CPAP right now the patient will use the mandibular advancing device. If he does want to use CPAP then we have to decrease the pressures further but at this point I encourage him not to use it in view of the normal sleep study. In the future we can always consider repeating the study. She did have a good experience at the she could be sleep Center. 12/08/2023 the patient is here for pulmonary follow-up visit. Overall he is doing well. Although he is having some family medical issues. This has caused significant stress. In meantime though his sleep has been okay. Does have daytime drowsiness while off the CPAP. EPWORTH score is elevated 10/24. He has been trying to get used to the elastic oral mandibular device. Therapy has been affecting beneficial. He has not having any significant snoring. Although he is getting some slight TMJ which she is uncomfortable with. He currently has 19. Band. He will continue to use that and see if it loosens up a little bit and hopefully he gets used to it in his TMJ settles. If it does not may have to go to they hire number. The patient needs to 1st get used to it. And then afterwards will go ahead and request a repeat in-lab sleep study to assess his response to therapy. We did look at his previous sleep study and the patient did not have any evidence of any central sleep apnea which is reassuring. From a respiratory status the patient has not been using his inhalers. He does have some wheezing on examination he is going to monitor closely. Also to note, he had been using the ipatropium nasal spray with very good response. But, he was told that his eye pressures are elevated, si he stopped it. Otherwise patient is without any other complaints. 01/11/2024 the patient is here for pulmonary follow-up visit. He has been noticing increasing shortness of breath and chest tightness. The patient did have some wheezing during previous evaluation. Currently he does have a rescue inhaler but is an old 1. he is concerned about using it. I did encourage him to use it As needed for the chest tightness and shortness breath symptoms and also is noticing some wheezing. When he does use the albuterol he can use 1 or 2 puffs. Ideally for him he should stick with less medicines since he tends to be more sensitive to the medicine. In addition to that he is complaining of ear discomfort his right ear has been hurting. Denies any significant sinus congestion at this time. Although is hurting less at this time seems. The patient has been trying to use the oral mandibular device although he started developing significant TMJ when he started going to the more extreme bands. Therefore now he has having a lot of pain. He is stopped using it. I did encourage him to massage his TMJ typically using nonsteroidal medicines such as Voltaren to the affected area daily. He should go back to using his mouth guard for his grinding. However once patient feels better he should re-attempt to use the elastic oral mandibular device with a 21 mm band. Once the patient is able to tolerated we can consider repeating the sleep study. He does not tolerate it because his TMJ then he should at least go back to his mouth guard to minimize on the grinding issue. He has wondering about a diagnosis of COPD that was brought up in 1 of his [place]. At least I do not have COPD in any of my reports. His pulmonary function studies do not represent any evidence of any COPD. Does a question of emphysema on [address] but it is minimal and is not consistent with COPD. 05/31/2024 the patient is here for a pulmonary follow-up visit. He is still having significant issues with TMJ after his elastic mandibular device. For some reason his right-sided TMJ still has significant uncomfortable. He tried the rynx-rgm-jgpefxq nonsteroidal ointment only for few days though without any significant relief. He has not ready tried much after that. He has not been using the device. He just uses a mouth guard just for his clenching. The patient also has been having issues with allergies. We did go over all his allergy medications. He is going to continue with the Dymista spray and ultimately switch over to just Astelin nasal spray whenever he feels better. Sp ecially if he develops any bleeding. The Dymista and we can always switch him to ask them low sooner. He does have a rescue inhaler that he uses as needed he should always carry with him specially if he is going hiking. He is no longer using the ipratropium since he developed a glaucoma and also he is not using any Sudafed because of increased heart rate and blood pressure. He will continue hi s current respiratory therapy will follow-up in 4-6 months. I which point the patient does have daytime drowsiness. His [place] score is getting worse now 06/09. His last sleep study was reassuring but we may want to repeat study coming 2024 to reassess his needs for CPAP. Specially now since he can not tolerate the elastic mandibular device PAP therapy may be something to consider specially if he continues to have significant daytime drowsiness and also his cardiovascular risk factors. [facility] Medical History (Updated 06/02/24 @ 20:09 by Kirk Hernandez MD) TMJ (dislocation of temporomandibular joint) EMANUEL (obstructive sleep apnea) Hearing loss Complex sleep apnea syndrome Chronic allergic rhinitis EMANUEL on CPAP Asthma Pulmonary nodules Family History Other Seasonal allergies Social History (Updated 05/31/24 @ 14:16 by Pau Mendiola LPN) Patient Tobacco Use Status: Never used Tobacco Review of Systems Const Reports daytime sleepiness and Denies night sweats Eyes Reports as per HPI ENT Denies change in voice, Reports hearing loss, Reports nasal congestion, Reports nasal discharge, Reports nasal obstruction, Reports post nasal drip, Denies tongue swelling and Reports other (TMJ right side) Card Denies chest pain Resp Reports cough GI Denies abdominal pain Musc Denies no additional complaints Neuro Denies Neuro-related abnormal movements Psych Denies no additional complaints Russel/Lymph Denies easy bleeding and Denies lymphadenopathy Aller/Immun Denies tongue swelling Physical Exam Vital Signs: Last Vital Signs Pulse 70 05/31/24 14:04 BP 122/68 05/31/24 14:04 Pulse Ox 100 05/31/24 14:04 Oxygen Delivery Method Room Air 05/31/24 14:04 BMI result Body Mass Index 24.7 Const General: alert HEENT Head: Yes normocephalic Mouth: abnormal TMJ (right side) Neck Neck: Yes normal visual inspection, Yes full ROM and Yes no lymphadenopathy Chest Chest palpation & inspection: normal inspection of the chest Resp Effort & Inspection: normal respiratory effort Auscultation: clear to auscultation bilaterally, no rhonchi and no wheezes Cardio Rate: regular rate Rhythm: regular rhythm Heart sounds: S1 normal heart sound present and S2 normal heart sound present GI Palpation (GI): Soft to palpation and nontender Auscultation: normal bowel sounds Skin General skin exam: rashes and/or lesions noted Assessment & Plan Assessment & Plan (1) Chronic allergic rhinitis: Code(s): J30.9 - Allergic rhinitis, unspecified Category: Medical (2) Asthma: Code(s): J45.909 - Unspecified asthma, uncomplicated Category: Medical Qualifiers: Asthma severity: moderate Asthma persistence: persistent Asthma complication type: uncomplicated Qualified Code(s): J45.40 - Moderate persistent asthma, uncomplicated (3) Pulmonary nodules: Code(s): R91.8 - Other nonspecific abnormal finding of lung field Category: Medical (4) Hearing loss: Code(s): H91.90 - Unspecified hearing loss, unspecified ear Category: Medical Qualifiers: Hearing loss type: unspecified Laterality: unspecified laterality Qualified Code(s): H91.90 - Unspecified hearing loss, unspecified ear (5) EMANUEL (obstructive sleep apnea): Code(s): G47.33 - Obstructive sleep apnea (adult) (pediatric) Category: Medical (6) TMJ (dislocation of temporomandibular joint): Comment: worsened by mandibular device Code(s): S03.00XA - Dislocation of jaw, unspecified side, initial encounter Category: Medical Qualifiers: Encounter type: sequela Qualified Code(s): S03.00XS - Dislocation of jaw, unspecified side, sequela Plan cold->warm compress to right TNJ twice a day Ibuprofen x 2 days call if TMJ if no better. Dymista BID stopped ipratropium nasal spray due to eye pressures ?glaucoma. Serial eye exams Nasal rinsing with Neti bottle continue allergy shots holding APAP therapy, worsening central apneas while on CPAP, and hearing loss. Last inlab PSG with no significant EMANUEL. Will plan to repeat inlab PSG in 2024 due to persistent elevation EPWORTH score 11/24. Stop mouth gaurd due to significant TMJ Still has an elevated EPWORTH score, will plan to repeat in lab sleep study once adjusted mandibular device F/U in 6 months Coding Level of Care Code Est Pt Level 4 (35480) Diagnoses Chronic allergic rhinitis J30.9 Moderate persistent asthma without complication J45.40 Asthma severity: moderate Asthma persistence: persistent Asthma complication type: uncomplicated Pulmonary nodules R91.8 Hearing loss, unspecified hearing loss type, unspecified laterality H91.90 Hearing loss type: unspecified Laterality: unspecified laterality EMANUEL (obstructive sleep apnea) G47.33 Dislocation of temporomandibular joint, sequela S03.00XS Encounter type: sequela Time Spent (min) 20
== END 2024-05-31 14:37 | disposition home or self-care (01) ==
PROVIDERS: PCP Internal Medicine; Visit Provider Hospitalist
DX: J30.9 Allergic rhinitis, unspecified (principal); J45.40 Moderate persistent asthma, uncomplicated; R91.8 Other nonspecific abnormal finding of lung field; H91.90 Unspecified hearing loss, unspecified ear; G47.33 Obstructive sleep apnea (adult) (pediatric); S03.00XS Dislocation of jaw, unspecified side, sequela
CPT/HCPCS: 99214